=== PATIENT | male | born 1950 | race Caucasian/White ===

== ENCOUNTER → 2017-01-02 16:41 | Outpatient (CLI) | payer MEDICARE ==
[2016-06-09 12:38] VITALS: BMI 30.7
[~2017-01-02 16:41] MED LIST: BENICAR40 MG PO; CATAPRES0.1 MG PO; CLARITIN 10 MG10 MG PO; GLUCOPHAGE500 MG PO; HYTRIN10 MG PO; NORVASC10 MG PO; OMEPRAZOLE20 M1 PO
[2017-01-04 09:17] LABS: PSA - % FREE 16.1 % (()); PSA - FREE 0.37 ng/mL; PSA - TOTAL 2.3 ng/mL (0.0-4.0)
== END | disposition home or self-care (01) ==
LOC: D.LAB 16:41
PROVIDERS: Urology
DX: N40.0 Benign prostatic hyperplasia without lower urinary tract symptoms (principal)

== ENCOUNTER → 2020-01-02 08:00 | Outpatient (CLI) | payer OTHER ==
[~2020-01-02 08:00] MED LIST changes: +EDARBI40 MG PO; +LASIX20 MG PO; +METOPROLOL TART50 MG PO; +PERCOCET 5-3251 TAB PO; +PROTONIX40 MG PO; +XARELTO20 MG PO
[2020-01-08 11:40] VITALS: BMI 33.8
== END | disposition home or self-care (01) ==
LOC: D.OPS 08:00
PROVIDERS: ATTEND Orthopaedic Surgery
DX: S56.111A Strain of flexor muscle, fascia and tendon of right index finger at forearm level, initial encounter (principal)

== ENCOUNTER 2020-01-08 10:38 | Day surgery (SDC) | payer OTHER ==
[2020-01-02 10:21] LABS: HEMATOCRIT 45.9 % (42.0-54.0); HEMOGLOBIN 15.1 g/dL (13.5-17.5); MCH 29.7 pg (26.0-34.0); MCHC 32.9 g/dL (31.0-37.0); MCV 90.4 fL (80.0-100.0); RBC 5.08 10x6/uL (4.20-6.10); RDW 13.6 % (11.5-14.5); WBC 6.1 10x3/uL (4.8-10.8)
[2020-01-02 10:33] LABS: ANION GAP 13.5 mmol/L (8-16); CALCIUM 8.9 mg/dL (8.5-10.1); CARBON DIOXIDE 28.2 mmol/L (21.0-32.0); CREATININE - SERUM 1.3 mg/dL (0.6-1.3); POTASSIUM - SERUM 3.7 mmol/L (3.5-5.1)
[~2020-01-08] VITALS: Ht 180.3 cm; Wt 108.9 kg
[~2020-01-08 10:38] MED LIST changes: -EDARBI40 MG PO; -LASIX20 MG PO; -METOPROLOL TART50 MG PO; -PERCOCET 5-3251 TAB PO; -PROTONIX40 MG PO
[2020-01-08] MEDS ORDERED: PROTONIX40 MG PO (11:35)
[2020-01-08] MEDS ORDERED: METOPROLOL TART50 MG PO (11:35)
[2020-01-08] MEDS ORDERED: LASIX20 MG PO (11:36)
[2020-01-08] MEDS ORDERED: EDARBI40 MG PO (11:36)
[2020-01-08 11:40] VITALS: BP 168/97; Ht 180.3 cm; Wt 108.9 kg
[2020-01-08] MEDS ORDERED: PERCOCET 5-3251 TAB PO (14:52)
--- NOTE | 2020-01-08 16:58 | NUR ---
1645-DISCHARGE CRITERIA MET.REVIEWED POST OPERATIVE INSTRUCTIONS AND FOLLOW UP APPOINTMENT. VERBALIZED UNDERSTANDING. DRESSING CDI. ARM IN SLING. ICE PACK WITH PT. ABLE TO WIGGLE DIGITS. VSS. CAP REFILL WNL.STRONG PALPABLE RADIAL PULSE.
--- NOTE | 2020-01-08 17:00 | NUR ---
1655-PT DRESSED. ESCORTED OUT VIA W/C WITH SON AWAITING TO DRIVE HOME.
--- NOTE | 2020-01-09 07:55 | OP ---
PATIENT NAME: CHRISTI NGUYEN MEDICAL RECORD: [id number] :48 LOCATION:[facility] ADMISSION DATE: SURGEON: HAL BARAJAS DO DATE OF OPERATION: 01/08/2020 PROCEDURE PERFORMED: Right shoulder arthroscopy with distal clavicle excision and subacromial decompression with acromioplasty, biceps tenodesis, labral debridement, and rotator cuff repair with Regeneten. PREOPERATIVE DIAGNOSES: Right shoulder partial rotator cuff tear, SLAP tear, subacromial impingement, and acromioclavicular joint arthritis POSTOPERATIVE DIAGNOSES: Right shoulder partial rotator cuff tear, SLAP tear, subacromial impingement, and acromioclavicular joint arthritis. INDICATIONS: Mr. Nguyen is a 69-year-old male, who presented to my office with an MRI showing the above findings. He had dealt with the pain for quite some time and wants something done surgically. He is tired of dealing with this and was aware of the risks include infection, bleeding, damage to nerves or vessels, need for further surgery, continued pain, loss of range of motion and need for further surgery. He signed the consent. SURGEON: Hal Barajas DO DESCRIPTION OF PROCEDURE: The patient was taken to the operative suite after receiving a block by anesthesia in the preoperative area, laid in supine position, given general anesthetic and LMA was placed. He was then placed in the left lateral decubitus position with the right shoulder up. The right shoulder was then prepped and draped in sterile fashion, was given 900 mg of clindamycin preoperatively. After the shoulder had been prepped and draped, the timeout was performed and everyone was in agreement with the correct side, site, patient and procedure. We then began by inflating the shoulder joint itself with 60 mL of normal saline through 18-gauge spinal needle in the posterior portal. The portal was established with the 11-blade scalpel. Trocar was entered into the joint. An anterior portal was then established with 18-gauge spinal needle and 11-blade scalpel. I then inspected the joint itself. The cartilage was in good repair; however, there was a large SLAP tear seen. There was a partial tear of the supraspinatus also. Subscap was also partially torn, but in good decent repair. The infraspinatus was in good shape too. We then brought the burner in and then did biceps tenotomy, went to the subacromial space, created a second portal in the lateral portal also with an 18-gauge spinal needle and 11-blade scalpel. I then did a subacromial decompression through the lateral portal and removed the acromioplasty into the anterior portal. A distal clavicle excision opened the AC joint to approximately 7 mm. I then opened up the lateral portal and made careful blunt dissection down with [place]'s to the rotator cuff tendon. It was marked prior to that with an 18-gauge spinal needle and put the Regeneten patch on it and stapled it in place and then addressed the anterior humerus and made an incision and brought the long head bicep tendon, which was split out through the incision and put a unicortical with 2.5 JuggerLoc stitch and anchor in and then put the tendon through the looped suture and cinched it down and cut the extra suture and then tied it down to the bicep tendon and then tied that down. We then cut the excess tendon and suture. It was then closed by Anish Deluca and Josse Castañeda; Josse Castañeda is certified surgical processor and Anish is student cashier assistant, with 2-0 Vicryl inverted interrupted fashion, 4 4-0 Monocryl an on the skin in the OPERATIVE REPORT [id number] CHRISTI NGUYEN rotator cuff and the biceps tenodesis site and the portal sites closed with 4-0 Monocryl inverted fashion, dressed with Dermabond, Telfa, and Tegaderm put in a sling, awakened and taken to recovery in stable condition. BLOOD LOSS: Minimal. COMPLICATIONS: None. TRANSINT:[id number] Voice Confirmation ID: [id number] DOCUMENT ID: [id number] HAL BARAJAS DO at 0755 CC: [id number] DICTATION DATE: 01/08/20 1501 [employer] ASSOCIATE: 01/09/20 0107 [facility] 01/08/20 [facility] [address] [id number]
== END 2020-01-08 16:55 | disposition home or self-care (01) ==
LOC: D.OPS 10:38
PROVIDERS: Anesthesiology; ATTEND Orthopaedic Surgery
DX: M75.101 Unspecified rotator cuff tear or rupture of right shoulder, not specified as traumatic (principal); S43.431A Superior glenoid labrum lesion of right shoulder, initial encounter; M25.811 Other specified joint disorders, right shoulder; M19.011 Primary osteoarthritis, right shoulder; E11.9 Type 2 diabetes mellitus without complications; Z79.4 Long term (current) use of insulin; E78.5 Hyperlipidemia, unspecified; S49.91XA Unspecified injury of right shoulder and upper arm, initial encounter; X58.XXXA Exposure to other specified factors, initial encounter